=== PATIENT | male | born 1995 | race Two or more races ===

== ENCOUNTER 2018-03-20 16:32 | Emergency (ER) | payer SELFPAY ==
[~2018-03-20] VITALS: Ht 165.1 cm; Wt 73.0 kg
[2018-03-20] MEDS ORDERED: LORAZEPAM 2MG/ML CPJ IM STA (17:44)
[2018-03-20] MEDS ORDERED: HALOPERIDOL LACTATE 5MG/ML VIAL IM STA (17:44)
[2018-03-20 20:01] LABS: BASOPHILS % 0.5 % (0.0-2.0); EOSINOPHILS % 2.1 % (0.0-5.0); HEMATOCRIT. 43.3 % (42.0-52.0); HEMOGLOBIN. 15.2 g/dL (14.0-18.0); LYMPHOCYTES % 26.1 % (20.0-50.0); MEAN CORPUSCULAR HEMOGLOBIN 28.5 pg (28.0-32.0); MEAN CORPUSCULAR VOLUME 81.4 fL (80.0-94.0); MEAN PLATELET VOLUME 10.3 fl (7.4-10.4); MONOCYTES % 5.4 % (2.0-8.0); NEUTROPHILS % 65.9 % (40.0-76.0); PLATELET 261 x1000/uL (130-400); RED BLOOD CELL COUNT 5.32 mill/uL (4.7-6.1); RED CELL DISTRIBUTION WIDTH 13.2 % (11.6-14.6)
[2018-03-20 20:10] LABS: CHLORIDE 108 mEq/L (98-107)
[2018-03-20 20:16] LABS: ETHANOL BLOOD < 10 mg/dL
[2018-03-20 21:10] LABS: CLARITY URINE CLEAR (CLEAR); COLOR URINE YELLOW (YELLOW); KETONES URINE NEGATIVE (NEGATIVE); LEUKOCYTE ESTERASE URINE NEGATIVE (NEGATIVE); NITRITE URINE NEGATIVE (NEGATIVE); OCCULT BLOOD URINE NEGATIVE (NEGATIVE); PH URINE 6.5 (4.5-8.0); PROTEIN URINE NEGATIVE (NEGATIVE); SPECIFIC GRAVITY URINE 1.009 (1.005-1.030); UROBILINOGEN URINE 0.2 E.U./dL (0.2-1.0)
[2018-03-20 21:25] LABS: *AMPHETAMINES SCREEN URINE NEGATIVE (NEGATIVE); *BARBITURATES SCREEN URINE NEGATIVE (NEGATIVE); *BENZODIAZEPINES SCREEN URINE NEGATIVE (NEGATIVE); *COCAINE SCREEN URINE NEGATIVE (NEGATIVE); METHADONE URINE SCREEN NEGATIVE (NEGATIVE)
[2018-03-20 21:26] LABS: CANNABINOID URINE SCREEN PRESUMTIVE POSITIVE (NEGATIVE); OPIATES URINE SCREEN NEGATIVE (NEGATIVE); PHENCYCLIDINE URINE SCREEN NEGATIVE (NEGATIVE)
[2018-03-21 14:10] VITALS: BP 124/72
== END 2018-03-21 14:57 | disposition home or self-care (01) ==
LOC: ER 16:40
DX: R45.850 Homicidal ideations (principal); F12.10 Cannabis abuse, uncomplicated; F99 Mental disorder, not otherwise specified
CPT/HCPCS: 36415; 80053; 80305; 80307; 80329; 81003; 85025; 96372; 99284; G0482; J1630; J2060; Z7610